=== PATIENT | male | born 1970 | race Caucasian/White ===

== ENCOUNTER 2018-03-31 08:12 | Day surgery (SDC) | payer BC ==
[2018-03-31] MEDS ORDERED: LIDOCAINE 2% (SDV) 5 ML INJ (09:39)
[2018-03-31] MEDS ORDERED: PROPOFOL 60 ML (09:39)
== END 2018-03-31 10:59 | disposition home or self-care (01) ==
LOC: GIL 08:12
DX: R19.4 Change in bowel habit (principal); K64.8 Other hemorrhoids
CPT/HCPCS: 45378